=== PATIENT | female | born 1990 | race African-American/Black ===

== ENCOUNTER 2017-01-19 15:12 | Emergency (ER) ==
[2017-01-19 15:15] VITALS: BP 134/78; TEMP 97.3; BMI 23.3
--- NOTE | 2017-01-19 15:25 | ED.PDOC ---
General ED Provider: Dr. FREDERICK LOREDO JR Chief Complaint: Nausea/Vomiting Stated Complaint: patient c/o n/v. denies diarrhea. patient c/o diffuse aching to abd. patient states that she has a headache also[ End ]0900 97.3 93 16 99% 134/78 9/10 SURG AT 7 YEAR OLD - BOWEL OBSTRUCTION migraines Time Seen by Physician: 15:25 Mode of Arrival: Walk-In Information Source: Patient Exam Limitations: No limitations Primary Care Provider: ALEXSANDRA MCCARTNEY Nursing and Triage Documentation Reviewed and Agree: No Review of Systems - Review Of Systems Constitutional: Reports: Malaise Eyes: Reports: No symptoms Ears, Nose, Mouth, Throat: Reports: No symptoms Respiratory: Reports: No symptoms Cardiac: Reports: No symptoms GI: Reports: Abdominal pain, Nausea, Vomiting : Reports: No symptoms Musculoskeletal: Reports: No symptoms Skin: Reports: No symptoms Neurological: Reports: No symptoms Endocrine: Reports: No symptoms Hematologic/Lymphatic: Reports: No symptoms All Other Systems: Other Past Medical History - Past Medical History Previously Healthy: Yes Endocrine: Reports: None Cardiovascular: Reports: None Respiratory: Reports: None Hematological: Reports: None Gastrointestinal: Reports: None Genitourinary: Reports: None Neuro/Psych: Reports: Migraine Musculoskeletal: Reports: None Cancer: Reports: None Last Menstrual Period: 1 month ago - Surgical History General Surgical History: Reports: Other - Family History Family History: Reports: Unknown - Social History Smoking Status: Never smoker Hx Substance Use: No Alcohol Screening: None Physical Exam - Physical Exam Appearance: Ill-appearing Ill-appearing: Mild Pain Distress: Mild Eyes: LIZET, EOMI, Conjunctiva clear ENT: Ears normal, Nose normal, Oropharynx normal Neck: Supple Respiratory: Airway patent, Breath sounds clear, Breath sounds equal, Respirations nonlabored Cardiovascular: RRR, Pulses normal, No rub, No murmur GI/: Soft, No masses, Bowel sounds normal, No Organomegaly, Tender (RLQ no rebound) Musculoskeletal: Normal strength, ROM intact, No edema, No calf tenderness Skin: Warm, Dry, Normal color Neurological: Sensation intact, Motor intact, Reflexes intact, Cranial nerves intact, Alert, Oriented Psychiatric: Affect appropriate, Mood appropriate Critical Care Note - Critical Care Note Total Time (mins): 0 Course - Course Hematology/Chemistry: 01/19/17 15:44 01/19/17 15:44 Orders, Labs, Meds: Lab Review 01/19/17 01/19/17 15:44 15:50 WBC 7.88 RBC 4.09 L Hgb 12.3 Hct 36.6 L MCV 89.5 MCH 30.1 MCHC 33.6 RDW Coeff of Ninfa 12.0 Plt Count 300 Immature Gran % (Auto) 0.4 Neut % (Auto) 78.6 Lymph % (Auto) 15.5 [place] % (Auto) 5.1 Eos % (Auto) 0.0 Baso % (Auto) 0.4 Immature Gran # (Auto) 0.0 Neut # 6.2 Lymph # 1.2 [place] # 0.4 Eos # 0.0 Baso # 0.0 Sodium 138 Potassium 3.9 Chloride 104 Carbon Dioxide 26 Anion Gap 11.9 BUN 12 Creatinine 0.72 Estimated GFR (MDRD) 121.00 BUN/Creatinine Ratio 16.66 Glucose 99 Calcium 9.6 Total Bilirubin 0.52 AST 13 L ALT 12 Alkaline Phosphatase 33 L Total Protein 7.7 Albumin 4.1 Globulin 3.6 Albumin/Globulin Ratio 1.14 Amylase 42 Lipase 4 L Urine Color Yellow Urine Clarity Clear Urine pH 7.0 Ur Specific [place] 1.025 Urine Protein Trace Urine Glucose (UA) Negative Urine Ketones Negative Urine Blood Negative Urine Nitrite Negative Urine Bilirubin Negative Urine Urobilinogen 0.2 Ur Leukocyte Esterase Trace Urine Microscopic WBC 0-2 Ur Squamous Epith Cells 10-20 Urine Test Positive Orders Category Date Time Status AMYLASE Stat LAB 01/19/17 15:44 Completed CBC W/ AUTO DIFF Stat LAB 01/19/17 15:44 Completed COMPREHENSIVE METABOLIC PANEL Stat LAB 01/19/17 15:44 Completed LIPASE Stat LAB 01/19/17 15:44 Completed URINALYSIS C & S IF INDICATED Stat LAB 01/19/17 15:50 Completed URINE Stat LAB 01/19/17 15:50 Completed Ketorolac Tromethamine [Toradol] MEDS 01/19/17 15:29 Discontinued 60 mg IM ONCE STA Ondansetron HCl/Pf [Zofran 4 mg/2 ml] MEDS 01/19/17 15:29 Discontinued 4 mg IM ONCE STA ULTRASOUND OB/TV [U/S OB/TV] Stat RADS 01/19/17 16:27 Ordered Medications Discontinued Medications Generic Name Dose Route Start Last Admin Trade Name Freq PRN Reason Stop Dose Admin Ketorolac Tromethamine 60 mg 01/19/17 15:29 01/19/17 15:38 Toradol IM 01/19/17 15:30 60 mg ONCE STA Administration Ondansetron HCl 4 mg 01/19/17 15:29 01/19/17 15:40 Zofran 4 Mg/2 Ml IM 01/19/17 15:30 4 mg ONCE STA Administration Vital Signs: Temp Pulse Resp BP Pulse Ox 01/19/17 15:12 97.3 F L 93 H 16 134/78 99 Departure - Departure Time of Disposition: 17:08 Disposition: HOME SELF-CARE Discharge Problem: Nausea, Vomiting, Hyperemesis arising during Instructions: Hyperemesis Gravidarum (ED) Condition: Good Pt referred to PMD for follow-up: Yes Additional Instructions: follow up with OB may follow up with [facility] return if not voiding three times a day adequate fluids when urine is colorless clear liquids until no vomiting for 8-12hours May use DIclegis for vomiting for nausea change diet habits Meals and snacks Women with nausea should eat before, or as soon as, they feel hungry to avoid an empty stomach, which can aggravate nausea . A snack before getting out of bed in the morning and snacks during the night ( crackers with peanut butter or cheese taken prior to bathroom trips) may be helpful. Meals and snacks should be eaten slowly and in small amounts every one to two hours to avoid a full stomach, which can also aggravate nausea . Women should determine what foods they tolerate best and try to eat those foods. Dietary manipulations that help some women include eliminating coffee and spicy, odorous, high-fat, acidic, and very sweet foods, and substituting snacks/meals that are protein-dominant, salty, low-fat, bland, and/or dry (eg, nuts, pretzels, crackers, cereal, toast) [1-3]. Drinking peppermint tea or sucking peppermint candies may reduce nausea [4]. Fluids Fluids should be consumed at least 30 minutes before or after solid food to minimize the effect of a full stomach [2]. Fluids are better tolerated if cold, clear, and carbonated or sour (eg, adalid nazanin, lemonade, popsicles) and taken in small amounts; using a straw sometimes helps . Some women find aromatic liquids, such as lemon or mint tea, more tolerable. Small volumes of electrolyte-replacement sports drinks can be used to replace both fluids and electrolytes, if tolerated. Adalid adalid-containing foods (eg, adalid lollipops, adalid tea, foods made with adalid root or syrup) for women with nausea. Prescriptions: Doxylamine/Pyridoxine HCl [Federica Lam 10-10 mg Tablet] 2 each PO BEDTIME PRN # 8 tablet.dr NAM Reason: Nausea / Vomiting Allergies/Adverse Reactions: Allergies sumatriptan Allergy (Intermediate, Verified 01/19/17 15:17) states, "makes Headache worse" Home Medications: Ambulatory Orders Doxylamine/Pyridoxine HCl [Diclegis 10-10 mg Tablet] 2 each PO BEDTIME PRN # 8 tablet. 01/19/17
[2017-01-19] MEDS ORDERED: TORADOL IM STA (15:29)
[2017-01-19] MEDS ORDERED: ZOFRAN 4 MG/2 ML IM STA (15:29)
[2017-01-19 15:48] LABS: BASOPHILS % (AUTO) 0.4 % (0.0-3.0); HEMATOCRIT 36.6 % (37.0-47.0); HEMOGLOBIN 12.3 g/dl (12.0-16.0); IMMATURE GRANULOCYTE % (AUTO) 0.4 % (0.0-5.0); LYMPHOCYTES # (AUTO) 1.2 K/uL (0.60-3.4); LYMPHOCYTES % (AUTO) 15.5 (10.0-50.0); MEAN CORPUSCULAR HEMOGLOBIN 30.1 pg (27.0-31.0); MEAN CORPUSCULAR HGB CONC 33.6 (31.8-35.4); MEAN CORPUSCULAR VOLUME 89.5 fl (81.0-99.0); MONOCYTES # (AUTO) 0.4 K/uL (0.4-2.0); MONOCYTES % (AUTO) 5.1 (0-10); NEUTROPHILS # (AUTO) 6.2 K/ul (2.0-6.9); NEUTROPHILS % (AUTO) 78.6; PLATELET COUNT 300 10^3/uL (140-440); RED BLOOD COUNT 4.09 10^6/ul (4.20-5.40); WHITE BLOOD COUNT 7.88 K/ul (4.6-10.2)
[2017-01-19 16:00] LABS: BILIRUBIN,URINE Negative (NEGATIVE); KETONES,URINE Negative (NEGATIVE); LEUKOCYTE ESTERASE ,URINE Trace (NEGATIVE); NITRITE,URINE Negative (NEGATIVE); PROTEIN,URINE Trace (NEGATIVE); URINE, BLOOD Negative (NEGATIVE)
[2017-01-19 16:01] LABS: ADD URINE MICROSCOPIC YES
[2017-01-19 16:02] LABS: URINE PREGNANCY INTERNAL QC INTERNAL QC VALID
[2017-01-19 16:08] LABS: ALBUMIN 4.1 g/dL (3.4-5.0); ALBUMIN/GLOBULIN RATIO 1.14; ANION GAP 11.9; BILIRUBIN,TOTAL 0.52 mg/dL (0.00-1.20); BUN/CREATININE RATIO 16.66; CALCIUM 9.6 mg/dL (8.2-10.2); CREATININE 0.72 mg/dL (0.60-1.30); POTASSIUM 3.9 mmol/L (3.5-5.10); TOTAL PROTEIN 7.7 g/dL (6.4-8.2)
--- NOTE | 2017-01-19 18:06 | US ---
Exam: First trimester transvaginal obstetrical sonogram. Clinical indication: with nausea and pelvic pain. Findings: The patient's date of last menstrual period is 12/16/2016, which corresponds to an expected gestatio nal age of 4 weeks 6 days and an expected date of delivery of 09/22/2017. The uterus measures 9.0 x 5.8 x 5.3 cm in diameter. The uterus is grossly unremarkable. Within the endometrial cavity there is a tiny 0.2 cm cystic area. This is too tiny for measurements . This could represent a small cyst versus an extremely early gestational sac. The right ovary has a normal sonographic appearance with a dominant follicle. The left ovary has a normal sonographic appearance. There is no free fluid within the pelvis. Impression: Tiny 0.2 cm cystic area within the endometrial cavity which could represent an extremely early gesta tional sac. Clinical correlation is recommended. Suggest follow-up sonogram in 10-14 days.
== END 2017-01-19 18:31 | disposition home or self-care (01) ==
LOC: ED 15:12
DX: O21.0 Mild hyperemesis gravidarum (principal); Z3A.00 Weeks of gestation of pregnancy not specified
CPT/HCPCS: 36415; 80053; 81001; 81025; 82150; 83690; 85025; 96372; 99283

== ENCOUNTER 2019-05-04 16:38 | Emergency (ER) ==
[2019-05-04 16:43] VITALS: BP 134/84; TEMP 97.6
[2019-05-04] MEDS ORDERED: TORADOL IM STA (17:18)
[2019-05-04] MEDS ORDERED: PHENERGAN 25 MG/ML VIAL IM STA (17:19)
--- NOTE | 2019-05-04 17:19 | ED.PDOC ---
General ED Provider: Dr. RAFA DODD Chief Complaint: Headache Stated Complaint: Headache for one week worse today with photophobia. Has not taken anything today. Has a history of migranes and family history aneursyms. Has had associated nausea and vomiting x 4 prior to arrival. Time Seen by Physician: 17:19 Mode of Arrival: Walk-In Information Source: Patient Nursing and Triage Documentation Reviewed and Agree: Yes Does patient meet sepsis criteria?: No System Inflammatory Response Syndrome: Not Applicable Sepsis Protocol: For patient's 13 years and over: Temp is 96.8 and below OR 101 and greater Pulse >90 BPM Resp >20/minute Acutely Altered Mental Status Are patient's symptoms suggestive of a new infection, such as: -Pneumonia -Skin, Soft Tissue -Endocarditis -UTI -Bone, Joint Infection -Implantable Device -Acute Abdominal Infection -Wound Infection -Meningitis -Blood Stream Catheter Infection -Unknown Neurological Complaint Exam - Headache Complaint/Exam Onset: Gradual Duration: 1 week Symptoms Are: Still present Timing: Constant Worst Headache Ever: Yes Initial Severity: Severe Current Severity: Severe Location: Diffuse Aggravating: Reports: Bright lights Alleviating: Reports: None Associated Signs and Symptoms: Reports: Nausea, Vomiting, Neck pain (mild ). Denies: Dizziness, Seizure, Sinus pressure, Fever, Neck stiffness, Decreased LOC , Visual changes Related History: Reports: Similar episode SAH Risk Factors: Reports: -slovak, Family history Meningitis Risk Factors: Reports: None Normal Head CT Within Last 12 Months: No (> five years ) Fundoscopic Exam: Present: Normal Findings (but difficult to perform ) Sinus Tenderness: Present: None TMJ Tenderness: Present: None Meningeal Signs Positive: No Pain on Passive Flexion-Positive Kernig's: No ROM Limited In: No Limitiations Focal Weakness: Present: None Focal Sensory Loss: Present: None Gait: Normal Nystagmus Present: No Gag Reflex Present: Yes [id number]: Normal Findings Romberg Test Positive: No Heel to Toe Normal: No Differential Diagnoses: Migraine, Sinus Headache, Subarachnoid Hemorrhage, Tension Headache Review of Systems - Review Of Systems Constitutional: Reports: No symptoms Eyes: Reports: Photophobia Ears, Nose, Mouth, Throat: Reports: No symptoms Respiratory: Reports: No symptoms Cardiac: Reports: No symptoms GI: Reports: Nausea, Vomiting : Reports: No symptoms Musculoskeletal: Reports: No symptoms Skin: Reports: No symptoms Neurological: Reports: Anxiety, Headache Endocrine: Reports: No symptoms Hematologic/Lymphatic: Reports: No symptoms All Other Systems: Reviewed and Negative Past Medical History - Past Medical History Previously Healthy: Yes Endocrine: Reports: None Cardiovascular: Reports: None Respiratory: Reports: None Hematological: Reports: None Gastrointestinal: Reports: None Genitourinary: Reports: None Neuro/Psych: Reports: Migraine Musculoskeletal: Reports: None Cancer: Reports: None Last Menstrual Period: 05/04/19 - Surgical History General Surgical History: Reports: Other - Family History Family History: Reports: Unknown - Social History Smoking Status: Never smoker Hx Substance Use: No Alcohol Screening: None - Immunizations Tetanus Shot up to Date: No Physical Exam - Physical Exam Appearance: Ill-appearing Ill-appearing: Mild Pain Distress: Severe Eyes: LIZET, EOMI, Conjunctiva clear Interpretation - Radiology Interpretation Radiology Interpretation By: Radiologist Radiology Results: Negative Exam Interpreted: CT Scan Re-Evaluation - Re-Evaluation Time of Re-Evaluation: 17:57 Status: Improved Vital Signs Stable: Yes Pain Level: pain is better by 50% Critical Care Note - Critical Care Note Total Time (mins): 0 Course - Course Orders, Labs, Meds: Orders Category Date Time Status Ketorolac Tromethamine [Toradol] MEDS 05/04/19 17:18 Discontinued 60 mg IM ONCE STA Promethazine HCl [Phenergan 25 mg/ml Vial] MEDS 05/04/19 17:19 Discontinued 25 mg IM ONCE STA CT HEAD W/O CONTRAST Stat RADS 05/04/19 17:57 Completed Medications Discontinued Medications Generic Name Dose Route Start Last Admin Trade Name Freq PRN Reason Stop Dose Admin Ketorolac Tromethamine 60 mg 05/04/19 17:18 05/04/19 17:35 Toradol IM 05/04/19 17:19 60 mg ONCE STA Administration Promethazine HCl 25 mg 05/04/19 17:19 05/04/19 17:35 Phenergan 25 Mg/Ml Vial IM 05/04/19 17:20 25 mg ONCE STA Administration Vital Signs: Temp Pulse Resp BP Pulse Ox 05/04/19 16:41 97.6 F 76 18 134/84 98 Departure - Departure Time of Disposition: 18:48 Disposition: HOME SELF-CARE Discharge Problem: Migraine Qualifiers: Migraine type: with aura Status migrainosus presence: without status migrainosus Intractability: not intractable Qualified Code(s): G43.109 - Migraine with aura, not intractable, without status migrainosus Instructions: Migraine Headache (ED) Condition: Stable Pt referred to PMD for follow-up: Yes IPMP verified?: No Additional Instructions: Take medications as prescribed Follow up with PCP in 3-5 days or establish with the Clinic Prescriptions: Butalb/Acetaminophen/Caffeine [Fioricet] 1 each PO Q6H PRN #25 tablet PRN Reason: Migraine Headache Ibuprofen [Motrin] 600 mg PO Q6H PRN #30 tablet PRN Reason: Analgesia Ondansetron [Zofran Odt] 4 mg PO Q8H PRN #25 tab.rapdis PRN Reason: Nausea / Vomiting Allergies/Adverse Reactions: Allergies sumatriptan Allergy (Intermediate, Verified 05/04/19 16:43) states, "makes Headache worse" Home Medications: Ambulatory Orders Butalb/Acetaminophen/Caffeine [Fioricet] 1 each PO Q6H PRN #25 tablet 05/04/19 Ibuprofen [Motrin] 600 mg PO Q6H PRN #30 tablet 05/04/19 Ondansetron [Zofran Odt] 4 mg PO Q8H PRN #25 tab.rapdis 05/04/19 Disposition Discussed With: Patient, Family
--- NOTE | 2019-05-04 18:24 | CT ---
EXAM: CT brain without contrast HISTORY: Headache TECHNIQUE: Multi-slice sequential. Coronal and sagital reformations were performed. COMPARISON: 05/26/2016 FINDINGS: There is no acute intracranial hemorrhage, extraxial fluid collection, mass affect, or midlineshift.T he ventricles are normal in size.The morelos-white matter interface is maintained.The basal cisterns are patent.The visualized paranasal sinuses are clear. Mastoid air cells are well aerated.The calvarium is unremarkable. IMPRESSION: No acute intracranial findings.
== END 2019-05-04 18:52 | disposition home or self-care (01) ==
LOC: ED 16:38
DX: G43.109 Migraine with aura, not intractable, without status migrainosus (principal)
CPT/HCPCS: 96372; 99282